=== PATIENT | male | born 1950 | race Caucasian/White ===

== ENCOUNTER 2019-02-19 10:42 | Outpatient (CLI) | payer MEDICARE, BC ==
[2019-02-26] MEDS ORDERED: LEVO125T5 PO (13:09)
== END 2019-02-19 23:59 | disposition home or self-care (01) ==
LOC: CFH 10:42
PROVIDERS: ATTEND Student in an Organized Health Care Education/Training Program
DX: N20.2 Calculus of kidney with calculus of ureter (principal); K57.30 Diverticulosis of large intestine without perforation or abscess without bleeding; K40.90 Unilateral inguinal hernia, without obstruction or gangrene, not specified as recurrent; I70.0 Atherosclerosis of aorta; M51.37 Other intervertebral disc degeneration, lumbosacral region
CPT/HCPCS: 74176

== ENCOUNTER 2019-02-26 12:26 | Day surgery (SDC) | payer MEDICARE, BC ==
[~2019-02-26] VITALS: Ht 185.4 cm; Wt 99.5 kg
[2019-02-26 13:01] VITALS: BP 125/78
== END 2019-02-26 17:55 | disposition home or self-care (01) ==
LOC: OUT 12:26
PROVIDERS: ATTEND Urology
DX: N20.2 Calculus of kidney with calculus of ureter (principal); N13.8 Other obstructive and reflux uropathy; E03.9 Hypothyroidism, unspecified; E66.9 Obesity, unspecified; Z68.28 Body mass index [BMI] 28.0-28.9, adult; Z79.890 Hormone replacement therapy
CPT/HCPCS: 52356; 74420; 81003; 82360; 87086; 88300; 93005; C1758; C1769; C2617; J0744; J1100; J1885; J2250; J2405; J2704; J3010; J7120; Q9967

== ENCOUNTER 2019-03-05 08:52 | Emergency (ER) | payer MEDICARE, BC ==
[~2019-03-05] VITALS: Ht 185.4 cm; Wt 98.0 kg
[~2019-03-05 08:52] MED LIST: LEVO125T5 PO
[2019-03-05] MEDS ORDERED: ONDANSETRON ODT 4 MG PO ONE (09:30)
--- NOTE | 2019-03-05 09:33 | NUR ---
URINE COLLECTED/SENT TO LAB. BLADDER SCAN POST VOID [id number]. PT DENIES BLADDER PAIN EXCEPT WITH URINATION.
[2019-03-05 09:34] LABS: BASOPHILS # (AUTO) 0.04 x10^3/uL (0-0.1); BASOPHILS % (AUTO) 0 % (0-1); EOSINOPHILS % (AUTO) 2 % (1-7); LYMPHOCYTES % (AUTO) 3 % (22-44); MD NO; MEAN CORPUSCULAR HEMOGLOBIN 30.7 pg (27.5-34.5); MEAN CORPUSCULAR HGB CONC 33.2 g/dL (33.2-36.2); MEAN CORPUSCULAR VOLUME 92.4 fL (81-97); MONOCYTES # (AUTO) 0.78 x10^3/uL (0.2-0.8); MONOCYTES % (AUTO) 7 % (2-9); NEUTROPHILS # (AUTO) 9.57 x10^3/uL (1.8-6.8); NEUTROPHILS % (AUTO) 88 % (42-75); PLATELET COUNT 222 x10^3/uL (130-400); RED BLOOD COUNT 5.21 x10^6/uL (4.38-5.82); RED CELL DISTRIBUTION WIDTH 14.6 % (9.4-14.8)
[2019-03-05] MEDS ORDERED: ONDANSETRON ODT 4 MG ONE (09:36)
--- NOTE | 2019-03-05 09:38 | NUR ---
PT TO XRAY, ZOFRAN GIVEN ODT FOR NAUSEA.
[2019-03-05 10:01] LABS: ALBUMIN 3.3 g/dL (3.4-5.0); ANION GAP 8 mmol/L (5-15); CALCIUM 8.7 mg/dL (8.5-10.1); CHLORIDE 103 mmol/L (98-107); CREATININE 1.31 mg/dL (0.7-1.3)
[2019-03-05 10:06] LABS: CULTURE INDICATED? YES; MICROSCOPIC INDICATED
--- NOTE | 2019-03-05 10:16 | NUR ---
ALL RESULTS BACK, PT FOR RECHECK.
--- NOTE | 2019-03-05 10:35 | NUR ---
PAGED DR CLEVELAND FOR DR ZAVALA
--- NOTE | 2019-03-05 10:50 | NUR ---
DR CLEVELAND RETURNED CALL TO DR ZAVALA
[2019-03-05 11:11] VITALS: BP 122/68
== END 2019-03-05 11:13 | disposition home or self-care (01) ==
LOC: ED 09:35
DX: N23 Unspecified renal colic (principal); R10.11 Right upper quadrant pain; E03.9 Hypothyroidism, unspecified
CPT/HCPCS: 36415; 74018; 80048; 81001; 82040; 85025; 87086; 99284; Q0162

== ENCOUNTER 2021-03-17 16:44 | Emergency (ER) | payer MEDICARE, BC ==
[~2021-03-17] VITALS: Ht 177.8 cm; Wt 94.8 kg
--- NOTE | 2021-03-17 18:35 | NUR ---
IT APPLICATION ADMINISTRATOR: PT TO ROOM FROM CANDICE KAMARA
--- NOTE | 2021-03-17 18:51 | NUR ---
SEEN AT FOR LLQ ABD PAIN, HAD XRAY, SHOWING SMALL BLOCK AND PT ADVISED TO COME TO ER. PT REOPRTS HAVING "LOOSE BM" YESTERDAY AND NOT PASSING GAS. DENIES N/V.
[2021-03-17] MEDS ORDERED: SODIUM CHLORIDE FLUSH 10ML SYR IVF ONE (19:30)
[2021-03-17] MEDS ORDERED: SODIUM CHLORIDE 0.9% 1,000ML IVBOLUS ONE (19:30)
[2021-03-17 19:52] LABS: BASOPHILS % (AUTO) 0 % (0-1); EOSINOPHILS % (AUTO) 1 % (1-7); LYMPHOCYTES % (AUTO) 4 % (22-44); MEAN CORPUSCULAR HEMOGLOBIN 30.5 pg (27.5-34.5); MEAN CORPUSCULAR HGB CONC 33.1 g/dL (33.2-36.2); MEAN PLATELET VOLUME 9.3 fL (7.4-10.4); MONOCYTES % (AUTO) 8 % (2-9); NEUTROPHILS % (AUTO) 87 % (42-75); PLATELET COUNT 191 x10^3/uL (130-400); RED BLOOD COUNT 5.31 x10^6/uL (4.38-5.82); RED CELL DISTRIBUTION WIDTH 14.7 % (9.4-14.8)
[2021-03-17] MEDS ORDERED: OMNIPAQUE 350 MG/ML, 100ML BOTTLE ONE (20:00)
[2021-03-17 20:02] LABS: ALANINE AMINOTRANSFERASE 24 U/L (12-78); ALBUMIN 3.5 g/dL (3.4-5.0); ANION GAP 10 mmol/L (5-15); CALCIUM 9.4 mg/dL (8.5-10.1); CHLORIDE 106 mmol/L (98-107)
[2021-03-17 20:05] LABS: ALKALINE PHOSPHATASE 96 U/L (45-117); TOTAL PROTEIN 7.7 g/dL (6.4-8.2)
--- NOTE | 2021-03-17 20:09 | NUR ---
PT TO CT
[2021-03-17] MEDS ORDERED: CEFOTETAN PMX 1GM/50ML 50 ML IVPB ONE (21:00)
[2021-03-17] MEDS ORDERED: METRONIDAZOLE PMX 500MG/100ML 100 ML IV ONE (21:00)
[2021-03-17] MEDS ORDERED: METRONIDAZOLE PMX 500MG/100ML 100 ML ONE (21:23)
[2021-03-17 22:00] VITALS: BP 138/85
== END 2021-03-17 22:59 | disposition home or self-care (01) ==
LOC: ED 17:00
DX: K57.32 Diverticulitis of large intestine without perforation or abscess without bleeding (principal)
CPT/HCPCS: 36415; 74177; 80053; 83605; 83690; 85025; 87040; 96361; 96365; 96368; 99285; J7030; Q9967